=== PATIENT | female | born 1945 | race Caucasian/White ===

== ENCOUNTER 2016-11-18 07:24 | Day surgery (SDC) | payer MEDICARE ==
[2016-11-18] MEDS ORDERED: PROPOFOL 10 MG/ML VIAL IV ONE (14:00)
[2016-11-18] MEDS ORDERED: LIDOCAINE 2% MDV (20MG/ML) 20ML VIAL IV ONE (14:00)
[2016-11-18] MEDS ORDERED: MIDAZOLAM HCL 2MG/2ML VIAL IV ONE (14:00)
--- NOTE | 2016-11-19 07:20 | Operative Note ---
DATE OF SURGERY: 11/18/2016. OPERATION: COLONOSCOPY with cold forceps and cold snare polypectomies. PREOPERATIVE DIAGNOSIS: Personal history of colon polyps. POSTOPERATIVE DIAGNOSES: 1. Colon polyps. 2. Severe sigmoid diverticulosis. PREPARATION QUALITY: Good. ESTIMATED BLOOD LOSS: Minimal. SPECIMENS: Cecal polyp, ascending colon polyp, descending colon polyp, and transverse colon polyp. PROCEDURE: After informed consent was obtained from the patient, she was placed in the left lateral decubitus position in the endoscopy suite, sedated and monitored by the department of anesthesia. Digital rectal examination was unremarkable. A well-lubricated [id number] colonoscope was inserted into the rectum and advanced through an extremely severely diverticular-laden sigmoid colon to the descending colon, transverse colon, ascending colon ultimately to the cecum. Abdominal pressure was required to intubate the cecal cap. Preparation quality was good. In the cecum, there was a diminutive polyp removed with a cold forceps. Minimal bleeding was noted. The ascending colon also revealed a diminutive polyp which was removed with a cold forceps in piecemeal fashion. Minimal blood loss was noted. The remainder of the cecum and ascending colon were unremarkable. In the transverse colon, there was a sessile polyp which was removed in piecemeal fashion with a cold snare. Minimal bleeding was noted. The polyp was retrieved without difficulty. The remainder of the transverse colon was unremarkable. There was another diminutive descending colon polyp removed with a cold forceps. The remainder of the descending colon was otherwise unremarkable. The sigmoid colon demonstrated severe diverticular changes but no additional polyps or mass lesions were seen. The rectum was unremarkable in forward and in J-turn views. The endoscope was straightened, the rectal ampulla deflated, and the endoscope was removed. RECOMMENDATIONS: I would suggest the patient follow a high-fiber diet. She will require repeat exam in 3-5 years pending tissue histology. As always, thank you for allowing me to participate in the healthcare of your patients. Andi Mendoza DO CC: Dr. Victor Hugo MOSER
== END 2016-11-18 09:30 | disposition home or self-care (01) ==
LOC: HOP 07:24
PROVIDERS: ATTEND Internal Medicine Gastroenterology
DX: Z86.010 Personal history of colon polyps (principal); D12.0 Benign neoplasm of cecum; D12.2 Benign neoplasm of ascending colon; D12.4 Benign neoplasm of descending colon; K63.5 Polyp of colon; K57.30 Diverticulosis of large intestine without perforation or abscess without bleeding

== ENCOUNTER 2019-09-05 05:32 | Day surgery (SDC) | payer MEDICARE ==
[2019-09-05] MEDS ORDERED: *PACU ONLY* KETAMINE HCL 10 MG/ML (20ML) VIAL IV ONE (05:33)
[2019-09-05] MEDS ORDERED: MIDAZOLAM HCL 2MG/2ML VIAL IV ONE (05:33)
[2019-09-05] MEDS ORDERED: ALFENTANIL HCL 500 MCG/1ML, 2ML AMP IV ONE (05:33)
[2019-09-05] MEDS ORDERED: RINGERS SOLUTION,LACTATED 1,000 ML IV ONE (05:45)
[2019-09-05] MEDS ORDERED: LIDOCAINE 1% W/EPI 1:200,000 MPF 30ML SQ ONE (07:35)
[2019-09-05] MEDS ORDERED: BUPIVACAINE 0.25% PF (2.5MG/ML) 10ML VIAL IM ONE (07:35)
[2019-09-05] MEDS ORDERED: BUPIVACAINE 0.5% W/EPI MPF 30 ML VIAL SQ ONE (07:35)
[2019-09-05] MEDS ORDERED: DEXAMETHASONE PRESERVATIVE FREE 10MG/ML VIAL IM ONE (07:35)
--- NOTE | 2019-09-05 07:53 | Operative Note - [place] ---
DATE OF SURGERY: 09/05/2019 PREOPERATIVE DIAGNOSIS: RIGHT LUMBAR RADICULOPATHY, ICD-10 CODE M54.16 AND M54.17. OPERATION: FLUOROSCOPICALLY GUIDED RIGHT TRANSFORAMINAL SELECTIVE EPIDURAL INJECTION L5 AND S1. SURGEON: Oneil Holloway D.O. INDICATION: This patient presents with pain which is right leg, ankle and foot. Diagnostics do show a L5-S1 disk and a probable L5-S1 nerve root impingement. There is diffuse spondylitic change. PROCEDURE: Intravenous line, vital sign monitoring, IV sedation, prepped and draped, sterile technique. Under imaging the lumbar foraminal opening on the right at L5 and S1 both identified and marked, skin infiltrated, two separate 20-gauge needles, one at each foraminal opening, 5 ml of .125% Marcaine and dexamethasone injected. The needles were removed, back cleaned, topical antibiotic, and sterile dressings were applied. Will monitor and evaluate. JOB NUMBER: [id number] MTDD
== END 2019-09-05 08:10 | disposition home or self-care (01) ==
LOC: SUR 05:32
PROVIDERS: ATTEND Pain Medicine Interventional Pain Medicine
DX: M54.16 Radiculopathy, lumbar region (principal); M54.17 Radiculopathy, lumbosacral region; I10 Essential (primary) hypertension; E78.00 Pure hypercholesterolemia, unspecified; M19.90 Unspecified osteoarthritis, unspecified site
CPT/HCPCS: J7120

== ENCOUNTER 2019-10-31 05:36 | Day surgery (SDC) | payer MEDICARE ==
[2019-10-31] MEDS: RINGERS SOLUTION,LACTATED 1,000 ML IV ONE (07:22)
[2019-10-31] MEDS: BUPIVACAINE 0.25% PF (2.5MG/ML) 10ML VIAL IM ONE (07:28)
[2019-10-31] MEDS: LIDOCAINE 1% W/EPI 1:200,000 MPF 30ML SQ ONE (07:28)
[2019-10-31] MEDS: BUPIVACAINE 0.5% W/EPI MPF 30 ML VIAL SQ ONE (07:28)
[2019-10-31] MEDS: DEXAMETHASONE PRESERVATIVE FREE 10MG/ML VIAL IM ONE (07:28)
--- NOTE | 2019-10-31 13:55 | Operative Note - [place] ---
DATE OF SURGERY: 10/31/2019 PREOPERATIVE DIAGNOSIS: LUMBAR RADICULOPATHY, ICD-10 CODE M54.16 AND M54.17. OPERATION: FLUOROSCOPICALLY GUIDED BILATERAL LUMBAR EPIDURAL INJECTION L4-L5. SURGEON: Oneil Holloway D.O. ANESTHESIA: Local sedation. ANESTHESIA PROVIDER: J Luis Palma CRNA INDICATION: This patient presents with pain which is low back, hip and leg bilaterally. Diagnostics show diffuse spondylitic change and disk abnormalities at L4-L5. The pattern of pain is radicular to the hips and legs and consistent with L4-L5. PROCEDURE: Intravenous line, vital sign monitoring, IV sedation, prepped and draped, sterile technique. Under imaging, the epidural interspace at L4-L5 was identified and marked bilaterally, skin infiltrated, two separate 18-gauge Tuohy needles one left and one right of midline with loss of resistance technique. Contrast epidurogram showing appropriate flow characteristics. 5 ml of 0.125% Marcaine and dexamethasone injected first left then right. Both needles were removed, back cleaned, topic antibiotic and sterile dressings were applied. Will monitor and evaluate. JOB NUMBER: [id number] MTDD
== END 2019-10-31 08:04 | disposition home or self-care (01) ==
LOC: SUR 05:36
PROVIDERS: ATTEND Pain Medicine Interventional Pain Medicine
DX: M54.16 Radiculopathy, lumbar region (principal); M54.17 Radiculopathy, lumbosacral region; I10 Essential (primary) hypertension; E78.00 Pure hypercholesterolemia, unspecified
CPT/HCPCS: J7120

== ENCOUNTER 2019-12-20 08:30 | Day surgery (SDC) | payer MEDICARE ==
[2019-12-20] MEDS ORDERED: LIDOCAINE 2% MDV (20MG/ML) 20ML VIAL IV ONE (08:31)
[2019-12-20] MEDS ORDERED: PROPOFOL 10 MG/ML VIAL IV ONE (08:31)
--- NOTE | 2019-12-28 10:51 | Operative Note ---
OPERATION: COLONOSCOPY with cold and hot snare polypectomies and hemoclip application. PREOPERATIVE DIAGNOSIS: Personal history of colon polyps. POSTOPERATIVE DIAGNOSES: 1. Severe sigmoid diverticulosis. 2. Cecal polyps x2, status post piecemeal hot snare x2 and clip x1. 3. Transverse colon polyp, status post piecemeal cold snare and clip x2. 4. Descending and sigmoid polyps, status post cold snare x2. COMPLICATIONS: None apparent. PREPARATION QUALITY: Good to fair. ESTIMATED BLOOD LOSS: Minimum. SPECIMENS: Cecal, transverse, descending, and sigmoid. PROCEDURE: After informed consent was obtained from the patient, she was placed in the left lateral decubitus position in the endoscopy suite, sedated and monitored by the department of anesthesia. Digital rectal exam was unremarkable. A well-lubricated [id number] colonoscope was inserted into the rectum and advanced through a severely diverticulated sigmoid colon descending colon, transverse colon, and ascending colon to the cecum. In the cecum there were 2 sessile polyps ranging in size from 1.0 cm to 1.2 cm, each removed in piecemeal fashion with a polypectomy snare and ERBE EndoCut current. One of the polyp sites was closed with a hemoclip for wound closure purposes. There was scant-to-no bleeding noted. The ascending colon was unremarkable. The transverse colon revealed a sessile polyp removed in piecemeal fashion with a cold snare. This was approximately 1.2 cm. Two hemoclips were applied for wound approximation and wound closure. There was a 6 mm and a 5 mm sigmoid colon polyp each removed with a cold snare. Minimal bleeding was noted at the sites. Each was retrieved. The sigmoid colon demonstrated severe diverticulosis. The rectum was unremarkable in forward and J-turn views. The endoscope was straightened, the rectal ampulla deflated, and the endoscope was removed. RECOMMENDATIONS: The patient should follow a soft low-fiber diet for the next 2 weeks. Avoid aspirin and nonsteroidal products for the next 2 weeks. further surveillance recommendation based on tissue histology but I suspect a repeat exam in 1-3 years will be recommended. As always, thank you for allowing me to participate in the healthcare of your patients. SHANTI
== END 2019-12-20 10:32 | disposition home or self-care (01) ==
LOC: HOP 08:30
PROVIDERS: ATTEND Internal Medicine Gastroenterology
DX: Z12.11 Encounter for screening for malignant neoplasm of colon (principal); Z86.010 Personal history of colon polyps; D12.0 Benign neoplasm of cecum; D12.4 Benign neoplasm of descending colon; K57.30 Diverticulosis of large intestine without perforation or abscess without bleeding; E78.00 Pure hypercholesterolemia, unspecified; I10 Essential (primary) hypertension

== ENCOUNTER 2020-01-02 05:56 | Day surgery (SDC) | payer MEDICARE ==
[2020-01-02] MEDS ORDERED: LIDOCAINE 2% MDV (20MG/ML) 20ML VIAL IV ONE (05:57)
[2020-01-02] MEDS ORDERED: PROPOFOL 10 MG/ML VIAL IV ONE (05:57)
[2020-01-02] MEDS ORDERED: MIDAZOLAM HCL 2MG/2ML VIAL IV ONE (05:57)
[2020-01-02] MEDS ORDERED: FENTANYL PF 100MCG/2ML VIAL IV ONE (05:57)
[2020-01-02] MEDS ORDERED: RINGERS SOLUTION,LACTATED 1,000 ML IV ONE (06:42)
[2020-01-02] MEDS ORDERED: LIDOCAINE 1% W/EPI 1:200,000 MPF 30ML SQ ONE (07:58)
[2020-01-02] MEDS ORDERED: BUPIVACAINE 0.5% (5MG/ML) PF 30ML VIAL IM ONE (07:59)
[2020-01-02] MEDS ORDERED: BUPIVACAINE 0.5% W/EPI MPF 30 ML VIAL SQ ONE (07:59)
[2020-01-02] MEDS ORDERED: DEXAMETHASONE PRESERVATIVE FREE 10MG/ML VIAL IM ONE (07:59)
--- NOTE | 2020-01-02 08:53 | Operative Note - [place] ---
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 OPERATION: FLUOROSCOPICALLY GUIDED INFILTRATION BLOCK BILATERAL LUMBAR FACETS L3-L4, L4-L5 AND L5-S1. SURGEON: Oneil Holloway D.O. ANESTHESIA: Local sedation. ANESTHESIA PROVIDER: J Luis Palma CRNA INDICATION: This patient presents with pain which is low back and hip, the back is the primary component. Current pain level 0-10 is an 8. A previous epidural injection seemed to help her lower extremities and helped her leg pain, but did not help her back pain. Her diagnostic studies of the lumbar spine show extensive and multiple level spondylosis of the facets. There is near disk space collapse at both L4-L5 and L5-S1. Her pattern of pain is low back. Today's examination shows pain with extension into the area. PROCEDURE: Intravenous line, vital sign monitoring, IV sedation, prepped and draped, sterile technique. Under imaging facet levels lumbar spine in the area of pain were identified and marked L3-L4, L4-L5, and L5-S1 bilateral. Each one of these points on the skin were infiltrated with a 22-gauge 3-1/2 inch needle into the facet with 1 ml of 0.5% Marcaine and Dexamethasone injected. This was repeated bilaterally. All areas were cleaned, topical antibiotic, sterile dressing applied. Will monitor and evaluate. JOB NUMBER: [id number] MTDD
== END 2020-01-02 08:45 | disposition home or self-care (01) ==
LOC: SUR 05:56
PROVIDERS: ATTEND Pain Medicine Interventional Pain Medicine
DX: M47.816 Spondylosis without myelopathy or radiculopathy, lumbar region (principal); E78.00 Pure hypercholesterolemia, unspecified; I10 Essential (primary) hypertension
CPT/HCPCS: J7120